=== PATIENT | female | born 2005 | race African-American/Black ===

== ENCOUNTER 2024-02-09 14:15 | Inpatient (IN) | payer OTHER ==
[~2024-02-09] VITALS: Ht 167.6 cm; Wt 90.0 kg
[2024-02-09] MEDS: LACTATED RINGER'S 1,000 ML IV ONE (14:30)
[2024-02-09 14:54] VITALS: PULSE 103; RESP 11; O2SAT 98
[2024-02-09 14:55] LABS: Basophils # (auto) 0 10 ^3/uL (0-0.2); Basophils % (auto) 0.3 % (0.0-2.0); Eosinophils # (auto) 0 10 ^3/uL (0-0.8); Eosinophils % (auto) 0.2 % (0.0-7.0); Hematocrit 33.7 % (36.0-46.0); Hemoglobin 10.8 g/dL (12.2-16.2); Lymphocytes # (auto) 1.4 10 ^3/uL (0.4-5.4); Lymphocytes % (auto) 9.9 % (10.0-50.0); Mean Corpuscular Hgb Conc. 32.1 g/dL (32.0-36.0); Mean Corpuscular Volume 84.1 fL (80.0-100.0); Monocytes % (auto) 6.9 % (0.0-12.0); Neutrophils # (auto) 11.8 10 ^3/uL (1.6-8.6); Neutrophils % (auto) 82.7 % (37.0-80.0); Red Blood Cells 4.01 10^6/uL (4.0-5.20); Red Cell Distribution Width 18.9 % (11.8-14.3); White Blood Cell 14.3 10^3/uL (4.4-10.8)
[2024-02-09] MEDS: NALOXONE HCL 1MG/ML 2ML SYRINGE IV ONE (15:03)
[2024-02-09 15:12] LABS: Magnesium 1.9 mg/dL (1.6-2.6)
[2024-02-09 15:20] LABS: Creatine Kinase IFCC 103 U/L (34-145)
[2024-02-09 15:25] LABS: Urine Bacteria MANY /hpf (None Seen); Urine Blood Negative /uL (Negative); Urine Clarity Clear (Clear); Urine Color Yellow (Yellow); Urine Mucus FEW (None Seen); Urine Protein, UAD Negative (Negative); Urine Specific Gravity 1.014 (1.001-1.035); Urine Urobilinogen Normal (Negative); Urine WBC 9 /hpf (0 - 5); Urine pH 5.5 (5.0-9.0)
[2024-02-09 15:30] LABS: Blood Alcohol < 3.0 mg/dL (<10)
[2024-02-09 15:31] LABS: Amphetamine Screen, Urine Neg (NEGATIVE); Barbiturate Scree,Urine Neg (NEGATIVE); Benzodiazephine Screen, Urine Neg (NEGATIVE); Cannabinoid Screen, Urine Pos (NEGATIVE); Cocaine Screen, Urine Neg (NEGATIVE); Opiate Scree,Urine Neg (NEGATIVE); Phencyclidine Screen, Urine Neg (NEGATIVE)
[2024-02-09 15:50] LABS: INR 1.17 (0.9-1.15); Partial Thromboplastin Time 23.9 SEC (24.5-34.5); Prothrombin Time 12.3 sec (9.3-11.8)
[2024-02-09 17:51] LABS: Albumin 4.4 g/dL (3.2-4.8); Alkaline Phosphatase 74 U/L (46-116); Anion Gap 10 (5-15); Aspartate Aminotransferase 43 U/L (13-40); Calcium 9.7 mg/dL (8.7-10.4); Carbon Dioxide 22 mmol/L (20-30); Chloride 109 mmol/L (98-107); Glucose 115 mg/dL (74-106); Sodium 141 mmol/L (136-145)
[2024-02-09 17:52] LABS: Alanine Aminotransferase 17 U/L (7-40); BUN/Creatinine Ratio 5.6 (10.0-20.0); Bilirubin, Total 0.6 mg/dL (0.2-1.0); Blood Urea Nitrogen 6 mg/dL (9-23); Total Protein 7.5 g/dL (5.7-8.2)
[2024-02-09] MEDS: cefTRIAXone 1GM/50ML D5W 50 ML IV ONE (18:53)
[2024-02-09] MEDS ORDERED: hydrALAZINE HCL 20 MG/ML VL IV PRN (20:45)
[2024-02-09] MEDS: SOD CHL 0.45% 1,000 ML IV ONE (22:45)
[2024-02-09 22:51] LABS: Triglycerides 78 mg/dL (< 150)
[2024-02-09 22:52] LABS: LDL Cholesterol 85 mg/dL (< 100)
[2024-02-09 22:53] LABS: Cholesterol 160 mg/dL (< 200); HDL Cholesterol 56 mg/dL (40-59)
[2024-02-09] MEDS: ACETAMINOPHEN 325 MG TAB PO ONE (22:59)
[2024-02-09] MEDS: amLODIPine BESYLATE 5 MG TAB PO ONE (22:59)
[2024-02-09] MEDS: cefTRIAXone SOD 1,000 MG VL IM ONE (23:16)
[2024-02-10 00:22] VITALS: PULSE 79; RESP 13; O2SAT 99
[2024-02-10 04:06] LABS: Basophils # (auto) 0 10 ^3/uL (0-0.2); Basophils % (auto) 0.3 % (0.0-2.0); Eosinophils # (auto) 0.1 10 ^3/uL (0-0.8); Eosinophils % (auto) 0.7 % (0.0-7.0); Hematocrit 33.9 % (36.0-46.0); Hemoglobin 10.8 g/dL (12.2-16.2); Lymphocytes # (auto) 2.7 10 ^3/uL (0.4-5.4); Lymphocytes % (auto) 18.6 % (10.0-50.0); Mean Corpuscular Hgb Conc. 31.9 g/dL (32.0-36.0); Mean Corpuscular Volume 84.7 fL (80.0-100.0); Monocytes # (auto) 1.8 10 ^3/uL (0-1.3); Monocytes % (auto) 12.6 % (0.0-12.0); Neutrophils # (auto) 9.7 10 ^3/uL (1.6-8.6); Neutrophils % (auto) 67.8 % (37.0-80.0); Nucleated Red Blood Cells % 0.1 %; Red Cell Distribution Width 18.7 % (11.8-14.3); White Blood Cell 14.4 10^3/uL (4.4-10.8)
[2024-02-10 04:12] LABS: Chloride 107 mmol/L (98-107); Potassium 3.4 mmol/L (3.5-5.1); Sodium 138 mmol/L (136-145)
[2024-02-10 04:13] LABS: Anion Gap 7 (5-15); Carbon Dioxide 24 mmol/L (20-30)
[2024-02-10 04:14] LABS: Calcium 9.1 mg/dL (8.7-10.4)
[2024-02-10 04:18] LABS: Glucose 84 mg/dL (74-106)
[2024-02-10 04:19] LABS: BUN/Creatinine Ratio 7.7 (10.0-20.0); Blood Urea Nitrogen 6 mg/dL (9-23)
[2024-02-10 08:00] VITALS: PULSE 63; RESP 12; O2SAT 99
[2024-02-10] MEDS: cefTRIAXone 1GM/50ML D5W 50 ML IV SCH (09:00)
[2024-02-10] MEDS: amLODIPine BESYLATE 5 MG TAB PO SCH (10:54)
[2024-02-10] MEDS: POTASSIUM CHL 20 Meq TABLET PO ONE (15:44)
[2024-02-10 19:30] VITALS: PULSE 99; RESP 16; O2SAT 99
[2024-02-10] MEDS ORDERED: LORazepam 2MG/ML-1ML VIAL IV PRN (21:15)
[2024-02-10 21:58] VITALS: BP 126/61; PULSE 74; RESP 18; TEMP 97.7; O2SAT 100
[2024-02-10] MEDS ORDERED: SERT-289 PO (22:09)
[2024-02-10] MEDS ORDERED: [UNRECOGNIZED DRUG - CODE] SL (22:09)
[2024-02-10] MEDS: LORazepam 0.5 MG TAB PO PRN (23:05)
[2024-02-11 01:00] VITALS: BP 108/62; PULSE 80; RESP 18; TEMP 98.3; O2SAT 100
[2024-02-11 05:00] VITALS: BP 126/82; PULSE 86; RESP 18; TEMP 97.6; O2SAT 97
[2024-02-11 06:11] LABS: Eosinophils # (auto) 0.3 10 ^3/uL (0-0.8)
[2024-02-11 06:15] LABS: Basophils # (auto) 0.1 10 ^3/uL (0-0.2); Basophils % (auto) 0.5 % (0.0-2.0); Eosinophils % (auto) 2.7 % (0.0-7.0); Hematocrit 35.4 % (36.0-46.0); Hemoglobin 11.5 g/dL (12.2-16.2); Lymphocytes # (auto) 3.1 10 ^3/uL (0.4-5.4); Lymphocytes % (auto) 24.4 % (10.0-50.0); Mean Corpuscular Hemoglobin 27.4 pg (28.0-32.0); Mean Corpuscular Hgb Conc. 32.3 g/dL (32.0-36.0); Mean Corpuscular Volume 84.6 fL (80.0-100.0); Monocytes # (auto) 1.5 10 ^3/uL (0-1.3); Monocytes % (auto) 11.7 % (0.0-12.0); Neutrophils # (auto) 7.8 10 ^3/uL (1.6-8.6); Neutrophils % (auto) 60.7 % (37.0-80.0); Red Blood Cells 4.19 10^6/uL (4.0-5.20); White Blood Cell 12.9 10^3/uL (4.4-10.8)
[2024-02-11 06:27] LABS: Chloride 108 mmol/L (98-107); Potassium 3.6 mmol/L (3.5-5.1); Sodium 138 mmol/L (136-145)
[2024-02-11 06:28] LABS: Anion Gap 7 (5-15); Calcium 9.3 mg/dL (8.7-10.4); Carbon Dioxide 23 mmol/L (20-30)
[2024-02-11 06:33] LABS: BUN/Creatinine Ratio 9.3 (10.0-20.0); Blood Urea Nitrogen 8 mg/dL (9-23); Glucose 105 mg/dL (74-106)
[2024-02-11 08:00] VITALS: BP 97/65; PULSE 83; PULSE 84; RESP 18; TEMP 98.6; O2SAT 98
[2024-02-11 09:00] VITALS: BP 97/65; PULSE 84; RESP 18; TEMP 98.6; O2SAT 98
[2024-02-11] MEDS: levoFLOXacin 500 MG TAB PO SCH (09:37)
== END 2024-02-11 14:50 | disposition home or self-care (01) | DRG 871 ==
LOC: ER 14:15 → EDBD 14:15 → TELE 20:47 → TELE-CENTR 02-10 21:58 → TELE-EAST 02-10 23:35
PROVIDERS: ADMIT Internal Medicine; ATTEND Internal Medicine
DX: A41.9 Sepsis, unspecified organism (principal); G92.9 Unspecified toxic encephalopathy; N17.9 Acute kidney failure, unspecified; N12 Tubulo-interstitial nephritis, not specified as acute or chronic; E66.9 Obesity, unspecified; I10 Essential (primary) hypertension; F41.9 Anxiety disorder, unspecified; F42.9 Obsessive-compulsive disorder, unspecified; F14.10 Cocaine abuse, uncomplicated; F32.A Depression, unspecified; Z68.33 Body mass index [BMI] 33.0-33.9, adult
CPT/HCPCS: 36415; 70450; 70551; 71045; 73560; 80048; 80053; 80061; 80307; 80320; 81001; 81025; 82140; 82550; 83036; 83605; 83735; 84443; 84484; 85025; 85610; 85730; 87040; 87081; 87086; 96361; 96374; G0378; J0696

== ENCOUNTER 2024-02-22 20:36 | Emergency (ER) | payer OTHER ==
[~2024-02-22] VITALS: Ht 167.6 cm; Wt 90.9 kg
[~2024-02-22 20:36] MED LIST: SERT-289 PO; [UNRECOGNIZED DRUG - CODE] SL
[2024-02-22 22:08] LABS: Basophils # (auto) 0.1 10 ^3/uL (0-0.2); Basophils % (auto) 0.4 % (0.0-2.0); Eosinophils # (auto) 0 10 ^3/uL (0-0.8); Monocytes # (auto) 1.4 10 ^3/uL (0-1.3); Monocytes % (auto) 8.8 % (0.0-12.0); Neutrophils # (auto) 12.9 10 ^3/uL (1.6-8.6)
[2024-02-22 22:10] LABS: Hematocrit 36.2 % (36.0-46.0); Hemoglobin 11.6 g/dL (12.2-16.2); Lymphocytes # (auto) 1.3 10 ^3/uL (0.4-5.4); Lymphocytes % (auto) 8.2 % (10.0-50.0); Mean Corpuscular Hemoglobin 26.6 pg (28.0-32.0); Mean Corpuscular Volume 83.3 fL (80.0-100.0); Neutrophils % (auto) 82.6 % (37.0-80.0); Red Blood Cells 4.34 10^6/uL (4.0-5.20); Red Cell Distribution Width 18.5 % (11.8-14.3); White Blood Cell 15.6 10^3/uL (4.4-10.8)
[2024-02-22 22:22] LABS: Chloride 107 mmol/L (98-107); Potassium 3.7 mmol/L (3.5-5.1); Sodium 137 mmol/L (136-145)
[2024-02-22 22:23] LABS: Anion Gap 10 (5-15); Carbon Dioxide 20 mmol/L (20-30)
[2024-02-22 22:28] LABS: BUN/Creatinine Ratio 12.1 (10.0-20.0); Blood Alcohol < 3.0 mg/dL (<10); Blood Urea Nitrogen 11 mg/dL (9-23); Glucose 122 mg/dL (74-106)
[2024-02-22 22:29] LABS: Acetaminophen < 2.0 UG/ML (10.0-20.0)
[2024-02-22 22:32] LABS: Salicylate < 3.0 mg/dL (2.8-20.0)
[2024-02-22 22:52] LABS: Urine Bacteria None Seen /hpf (None Seen)
[2024-02-22 23:01] LABS: Urine Blood Negative /uL (Negative); Urine Clarity Clear (Clear); Urine Color Light-Yellow (Yellow); Urine Mucus FEW (None Seen); Urine Protein, UAD Negative (Negative); Urine Specific Gravity 1.014 (1.001-1.035); Urine Urobilinogen Normal (Negative); Urine WBC 4 /hpf (0 - 5)
[2024-02-22 23:16] LABS: Amphetamine Screen, Urine Neg (NEGATIVE); Barbiturate Scree,Urine Neg (NEGATIVE); Benzodiazephine Screen, Urine Neg (NEGATIVE); Cannabinoid Screen, Urine Pos (NEGATIVE); Cocaine Screen, Urine Neg (NEGATIVE); Opiate Scree,Urine Neg (NEGATIVE); Phencyclidine Screen, Urine Neg (NEGATIVE)
[2024-02-22] MEDS: SODIUM CHLORIDE 0.9% 1,000 ML IV ONE (23:23)
[2024-02-23 04:37] VITALS: PULSE 93; RESP 14; O2SAT 99
[2024-02-23] MEDS: OLANZapine 5 MG TAB PO SCH (04:58)
[2024-02-23 07:30] VITALS: PULSE 85; RESP 16; O2SAT 98
[2024-02-23] MEDS: cefTRIAXone 1GM/50ML D5W 50 ML IV ONE (11:45)
[2024-02-23] MEDS: SODIUM CHLORIDE 0.9% 1,000 ML IV ONE (14:18)
[2024-02-23] MEDS: LORazepam 2MG/ML-1ML VIAL IM ONE (21:39)
[2024-02-23] MEDS: diphenhdrAMINE HCL 50 MG/1 ML VL IM ONE (22:17)
[2024-02-24 07:26] VITALS: BP 141/90; PULSE 79; RESP 18; TEMP 98.2; O2SAT 99
== END 2024-02-24 07:28 | disposition short-term general hospital (02) ==
LOC: ER 20:36
DX: T43.222A Poisoning by selective serotonin reuptake inhibitors, intentional self-harm, initial encounter (principal); F20.9 Schizophrenia, unspecified; F31.89 Other bipolar disorder; R07.89 Other chest pain; Y92.89 Other specified places as the place of occurrence of the external cause
CPT/HCPCS: 36415; 71045; 80048; 80307; 80320; 80329; 81001; 81025; 85025; 93005; 96360; 96361; 96372; 99285; J0696; J1200; J2060; J7030

== ENCOUNTER 2024-03-21 09:19 | Emergency (ER) | payer OTHER ==
[~2024-03-21] VITALS: Ht 167.6 cm; Wt 91.7 kg
[2024-03-21 09:49] VITALS: PULSE 85; RESP 15; O2SAT 95
[2024-03-21 10:02] LABS: Urine Bacteria FEW /hpf (None Seen); Urine Blood Negative /uL (Negative); Urine Clarity Turbid (Clear); Urine Color Yellow (Yellow); Urine Mucus FEW (None Seen); Urine Protein, UAD 1+ (Negative); Urine Specific Gravity 1.025 (1.001-1.035); Urine Urobilinogen Normal (Negative); Urine WBC 6 /hpf (0 - 5)
[2024-03-21 10:10] LABS: Amphetamine Screen, Urine Neg (NEGATIVE); Barbiturate Scree,Urine Neg (NEGATIVE); Benzodiazephine Screen, Urine Neg (NEGATIVE); Cannabinoid Screen, Urine Pos (NEGATIVE); Cocaine Screen, Urine Neg (NEGATIVE); Opiate Scree,Urine Neg (NEGATIVE); Phencyclidine Screen, Urine Neg (NEGATIVE)
[2024-03-21 12:41] LABS: Urine Bacteria FEW /hpf (None Seen); Urine Blood Negative /uL (Negative); Urine Clarity Clear (Clear); Urine Color Colorless (Yellow); Urine Protein, UAD Negative (Negative); Urine Specific Gravity 1.006 (1.001-1.035); Urine Urobilinogen Normal (Negative); Urine WBC 1 /hpf (0 - 5); Urine pH 6.5 (5.0-9.0)
[2024-03-21 21:25] LABS: Basophils # (auto) 0.1 10 ^3/uL (0-0.2); Basophils % (auto) 0.5 % (0.0-2.0); Hemoglobin 11.8 g/dL (12.2-16.2); Lymphocytes # (auto) 3.1 10 ^3/uL (0.4-5.4); Monocytes # (auto) 1.2 10 ^3/uL (0-1.3)
[2024-03-21 21:26] LABS: Eosinophils # (auto) 0 10 ^3/uL (0-0.8); Eosinophils % (auto) 0.4 % (0.0-7.0); Hematocrit 36.3 % (36.0-46.0); Lymphocytes % (auto) 26.7 % (10.0-50.0); Mean Corpuscular Hgb Conc. 32.5 g/dL (32.0-36.0); Monocytes % (auto) 10.6 % (0.0-12.0); Neutrophils # (auto) 7.3 10 ^3/uL (1.6-8.6); Neutrophils % (auto) 61.8 % (37.0-80.0); Red Blood Cells 4.38 10^6/uL (4.0-5.20); Red Cell Distribution Width 18.4 % (11.8-14.3); White Blood Cell 11.8 10^3/uL (4.4-10.8)
[2024-03-21 21:44] LABS: Acetaminophen < 2.0 UG/ML (10.0-20.0); Alanine Aminotransferase 15 U/L (7-40); Alkaline Phosphatase 89 U/L (46-116); Anion Gap 5 (5-15); Aspartate Aminotransferase 12 U/L (13-40); Blood Alcohol < 3.0 mg/dL (<10); Blood Urea Nitrogen 7 mg/dL (9-23); Calcium 10.2 mg/dL (8.5-10.1); Carbon Dioxide 27 mmol/L (20-30); Chloride 106 mmol/L (98-107); Glucose 88 mg/dL (74-106); Potassium 3.6 mmol/L (3.5-5.1); Sodium 138 mmol/L (136-145)
[2024-03-21 21:45] LABS: Bilirubin, Total 0.8 mg/dL (0.2-1.0); Total Protein 8.2 g/dL (5.7-8.2)
[2024-03-21 21:52] LABS: Salicylate < 3.0 mg/dL (2.8-20.0)
[2024-03-21] MEDS: OLANZapine 5 MG TAB PO SCH (22:00)
[2024-03-21] MEDS: PRAZOSIN HCL 1 MG CAP PO SCH (22:00)
[2024-03-22 03:09] VITALS: PULSE 88; RESP 18; O2SAT 98
[2024-03-22 09:01] VITALS: PULSE 76; RESP 17; O2SAT 99
[2024-03-22] MEDS: cefTRIAXone SOD 1,000 MG VL IM ONE (11:36)
[2024-03-22] MEDS: FLUoxetine HCL 20 MG CAP PO SCH (11:36)
[2024-03-22 14:50] VITALS: BP 118/70; PULSE 90; RESP 16; TEMP 98.6; O2SAT 98
== END 2024-03-22 15:45 | disposition home or self-care (01) ==
LOC: ER 09:19
DX: R45.851 Suicidal ideations (principal); F41.9 Anxiety disorder, unspecified; F32.9 Major depressive disorder, single episode, unspecified; F20.9 Schizophrenia, unspecified; F12.90 Cannabis use, unspecified, uncomplicated
CPT/HCPCS: 36415; 80053; 80307; 80320; 80329; 81001; 81025; 85025; 96372; 99285; J0696

== ENCOUNTER 2024-06-02 22:24 | Emergency (ER) | payer OTHER ==
[~2024-06-02] VITALS: Ht 167.6 cm; Wt 96.9 kg
[2024-06-02 23:19] LABS: Hemoglobin 11.1 g/dL (12.2-16.2); Monocytes # (auto) 1.8 10 ^3/uL (0-1.3); Neutrophils # (auto) 8.3 10 ^3/uL (1.6-8.6)
[2024-06-02 23:23] LABS: Basophils # (auto) 0 10 ^3/uL (0-0.2); Basophils % (auto) 0.3 % (0.0-2.0); Eosinophils # (auto) 1.7 10 ^3/uL (0-0.8); Eosinophils % (auto) 11.2 % (0.0-7.0); Hematocrit 34.2 % (36.0-46.0); Lymphocytes # (auto) 2.9 10 ^3/uL (0.4-5.4); Lymphocytes % (auto) 19.7 % (10.0-50.0); Mean Corpuscular Hgb Conc. 32.6 g/dL (32.0-36.0); Mean Corpuscular Volume 82.8 fL (80.0-100.0); Monocytes % (auto) 12.4 % (0.0-12.0); Neutrophils % (auto) 56.4 % (37.0-80.0); Platelet Count (auto) 353 10^3/uL (140-450); Red Blood Cells 4.13 10^6/uL (4.0-5.20); White Blood Cell 14.7 10^3/uL (4.4-10.8)
[2024-06-02 23:36] LABS: Acetaminophen < 2.0 UG/ML (10.0-20.0)
[2024-06-02 23:37] LABS: Alanine Aminotransferase 12 U/L (7-40); Albumin 4.7 g/dL (3.2-4.8); Alkaline Phosphatase 81 U/L (46-116); Anion Gap 7 (5-15); Aspartate Aminotransferase 15 U/L (13-40); Bilirubin, Total 0.5 mg/dL (0.2-1.0); Calcium 9.5 mg/dL (8.7-10.4); Carbon Dioxide 23 mmol/L (20-30); Chloride 105 mmol/L (98-107); Glucose 90 mg/dL (74-106); Potassium 3.5 mmol/L (3.5-5.1); Sodium 135 mmol/L (136-145); Total Protein 8.2 g/dL (5.7-8.2)
[2024-06-02 23:44] LABS: Red Cell Distribution Width 20.7 % (11.8-14.3)
[2024-06-02 23:49] LABS: Blood Urea Nitrogen 12 mg/dL (9-23)
[2024-06-02 23:53] LABS: Urine Bacteria FEW /hpf (None Seen); Urine Blood Negative /uL (Negative); Urine Clarity Clear (Clear); Urine Color Light-Yellow (Yellow); Urine Protein, UAD Negative (Negative); Urine Specific Gravity 1.014 (1.001-1.035); Urine Urobilinogen Normal (Negative); Urine WBC 2 /hpf (0 - 5)
[2024-06-02 23:54] LABS: Amphetamine Screen, Urine Neg (NEGATIVE); Barbiturate Scree,Urine Neg (NEGATIVE); Benzodiazephine Screen, Urine Neg (NEGATIVE); Cocaine Screen, Urine Neg (NEGATIVE)
[2024-06-02 23:55] LABS: Cannabinoid Screen, Urine Neg (NEGATIVE); Opiate Scree,Urine Neg (NEGATIVE); Phencyclidine Screen, Urine Neg (NEGATIVE)
[2024-06-02 23:55] LABS: Salicylate < 3.0 mg/dL (2.8-20.0)
[2024-06-03 00:16] LABS: BUN/Creatinine Ratio 13.5 (10.0-20.0)
[2024-06-03 08:53] VITALS: PULSE 85; RESP 16; O2SAT 97
[2024-06-03] MEDS: LORazepam 0.5 MG TAB PO ONE (09:14)
[2024-06-03 13:08] VITALS: BP 118/74; PULSE 107; RESP 16; TEMP 98.7; O2SAT 94
== END 2024-06-03 13:17 ==
LOC: ER 22:24
DX: R45.851 Suicidal ideations (principal); F31.9 Bipolar disorder, unspecified; R10.2 Pelvic and perineal pain; F12.10 Cannabis abuse, uncomplicated
CPT/HCPCS: 36415; 80053; 80307; 80320; 80329; 81001; 81025; 84702; 85025

== ENCOUNTER 2024-06-21 16:49 | Emergency (ER) | payer OTHER ==
[~2024-06-21] VITALS: Ht 167.6 cm; Wt 90.9 kg
[2024-06-21 17:32] VITALS: PULSE 106; RESP 14; O2SAT 96
[2024-06-21 20:00] VITALS: TEMP 98.8
[2024-06-21 23:15] VITALS: BP 116/69; PULSE 82; RESP 20; O2SAT 98
[2024-06-21 23:53] LABS: Amphetamine Screen, Urine Neg (NEGATIVE); Barbiturate Scree,Urine Neg (NEGATIVE); Benzodiazephine Screen, Urine Neg (NEGATIVE); Cannabinoid Screen, Urine Pos (NEGATIVE); Cocaine Screen, Urine Neg (NEGATIVE); Opiate Scree,Urine Neg (NEGATIVE); Phencyclidine Screen, Urine Neg (NEGATIVE)
== END 2024-06-21 23:15 | disposition home or self-care (01) ==
LOC: EDBD 16:49 → ER 16:49
DX: F19.10 Other psychoactive substance abuse, uncomplicated (principal); F12.90 Cannabis use, unspecified, uncomplicated; F41.9 Anxiety disorder, unspecified; F32.A Depression, unspecified; F20.9 Schizophrenia, unspecified; Z79.899 Other long term (current) drug therapy
CPT/HCPCS: 36415; 80307; 80320